=== PATIENT | female | born 1975 | race Caucasian/White ===

== ENCOUNTER 2019-02-04 11:00 | Emergency (ER) | payer MEDICAID ==
[~2019-02-04] VITALS: Ht 170.2 cm; Wt 45.0 kg
[2019-02-04] MEDS ORDERED: LORazepam 1 MG tablet PO ONE (11:35)
[2019-02-04] MEDS ORDERED: diphenhydrAMINE 50 mg/ml inj IV ONE (11:40)
[2019-02-04] MEDS ORDERED: LORazepam 2 mg/ml vial IV ONE (11:40)
[2019-02-04 11:47] LABS: BASOPHILS # (AUTO) 0.1 X10'3 (0-0.2); BASOPHILS % (AUTO) 0.3 % (0-1); EOSINOPHILS % (AUTO) 0.2 % (0-6); HEMATOCRIT 42.2 % (35.0-45.0); HEMOGLOBIN 14.5 g/dl (12.0-16.0); MEAN CORPUSCULAR HEMOGLOBIN 35.4 PG (27.0-31.0); MEAN CORPUSCULAR HGB CONC 34.3 g/dL (33.0-36.5); MEAN PLATELET VOLUME 7.3 FL (7.4-10.4); MONOCYTES % (AUTO) 5.7 % (2-12); NEUTROPHILS # (AUTO) 14.8 X10'3 (1.8-7.7); NEUTROPHILS % (AUTO) 82.8 % (42-75); PLATELET COUNT 369 X10'3 (140-440); RED BLOOD COUNT 4.09 X10'6 (4.20-5.60); RED CELL DISTRIBUTION WIDTH 14.6 % (11.5-14.5); WHITE BLOOD COUNT 17.9 X10'3 (4.5-11.0)
--- NOTE | 2019-02-04 11:49 | NUR ---
RELIEVING RN FOR BREAK, PT IS RESTING QUIETLY ON CYNTHIA, FAMILY AT BEDSIDE, [employer] EXPERT TO DO EKG
[2019-02-04 12:04] LABS: ALANINE AMINOTRANSFERASE 48 U/L (12-78); ALBUMIN 4.1 G/DL (3.4-5.0); ALBUMIN/GLOBULIN RATIO 1.2 (1.1-1.5); ALKALINE PHOSPHATASE 72 IU/L (46-116); ANION GAP 18 (8-16); ASPARTATE AMINO TRANSFERASE 50 U/L (10-37); BILIRUBIN,TOTAL 0.7 MG/DL (0.1-1.0); BLOOD UREA NITROGEN 9 MG/DL (7-18); BUN/CREATININE RATIO 8.4 (6.6-38.0); CALCIUM 9.1 MG/DL (8.5-10.1); CHLORIDE 99 MMOL/L (99-107); CREATININE 1.07 MG/DL (0.40-0.90); GLUCOSE 191 MG/DL (70-104); POTASSIUM 3.3 MMOL/L (3.5-5.1); SODIUM 134 MMOL/L (135-145); TOTAL CARBON DIOXIDE 16.8 MMOL/L (24-32); TOTAL PROTEIN 7.6 G/DL (6.4-8.2); eGFR 56 ML/MIN
[2019-02-04 12:10] LABS: D-DIMER 0.31 MG/L FEU (0-0.50)
[2019-02-04 12:36] LABS: CLARITY,URINE CLEAR (Clear); COLOR,URINE YELLOW (Yellow); GLUCOSE, URINE 100 mg/dl (Neg); KETONES,URINE 15 mg/dl (Neg); LEUKOCYTE ESTERASE ,URINE NEGATIVE (Neg); NITRITES, URINE NEGATIVE (Neg); OCCULT BLOOD,URINE NEGATIVE (Neg); PH,URINE 6.5 (4.8-8.0); PROTEIN,URINE NEGATIVE (Neg); UA COLLECTION TYPE CLN CATCH MIDSTREAM; URINE HCG NEGATIVE (NEG); UROBILINOGEN,URINE 0.2 E.U/dL (0.2-1.0)
[2019-02-04 12:48] LABS: ETHANOL < 0.010 GM/DL (0.0-0.010)
[2019-02-04 12:48] LABS: URINE AMPHETAMINE SCREEN NEGATIVE (Neg); URINE BARBITUATE SCREEN NEGATIVE (Neg); URINE BENZODIAZEPINES SCREEN NEGATIVE (Neg); URINE CANNABINOID SCREEN POSITIVE (Neg); URINE COCAINE SCREEN NEGATIVE (Neg); URINE METHADONE SCREEN NEGATIVE (Neg); URINE OPIATE SCREEN NEGATIVE (Neg); URINE PHENCYCLIDINE SCREEN NEGATIVE (Neg)
[2019-02-04] MEDS ORDERED: LORA-269 PO (13:52)
[2019-02-04 14:05] VITALS: BP 110/65
== END 2019-02-04 14:11 | disposition home or self-care (01) ==
LOC: ER 11:00
DX: F10.239 Alcohol dependence with withdrawal, unspecified (principal); Z79.899 Other long term (current) drug therapy; Y90.0 Blood alcohol level of less than 20 mg/100 ml
CPT/HCPCS: 36415; 71045; 80053; 80305; 80320; 81003; 81025; 84484; 85025; 85379; 93005; 96374; 99284; J1200; J2060